=== PATIENT | female | born 1970 | race Caucasian/White ===

== ENCOUNTER 2023-05-14 06:10 | Emergency (ER) | payer MEDICAID, SELFPAY ==
--- NOTE | 2023-05-14 07:15 | PC.NURSE ---
SEE DOWNTIME CHART for initial assessment.
--- NOTE | 2023-05-14 07:20 | PC.NURSE ---
Patient report received from JUAN ANTONIO Velasquez. all questions answered and care of patient assumed.
[2023-05-14 07:33] LABS: Alanine Aminotransferase 18 U/L (6-35); Albumin Level 4.3 g/dL (3.5-5.1); Alkaline Phosphatase 60 U/L (38-126); Anion Gap 11 mmol/L (8-16); Aspartate Amino Transferase 25 U/L (14-36); Bilirubin,Total 0.4 mg/dL (0.2-1.3); Blood Urea Nitrogen 10 mg/dL (7-17); Calcium 8.9 mg/dL (8.4-10.2); Carbon Dioxide 24 mmol/L (22-30); Chloride 104 mmol/L (98-107); Estimated Glomerular Filt Rate > 60; Glucose 116 mg/dL (65-110); Potassium 3.3 mmol/L (3.4-5.0); Sodium 139 mmol/L (137-145)
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
[2023-05-14 07:39] LABS: Amphetamine Screen Urine Positive (Negative); Barbiturate Screen Urine Negative (Negative); Benzodiazepines Screen Urine Negative (Negative); Cannabinoid Screen Urine Negative (Negative); Cocaine Screen Urine Negative (Negative); Methadone Screen Urine Negative (Negative); Opiate Screen Urine Negative (Negative); Phencyclidine Screen Urine Negative (Negative)
[2023-05-14 07:41] LABS: Ethanol < 10 mg/dL (<10); Salicylate < 1.0 mg/dL (2-20)
[2023-05-14 08:19] LABS: Acetaminophen < 10 ug/mL (10-30)
[2023-05-14 08:41] LABS: Basophils Percent Auto 0.6 % (0.2-1.2); Eosinophils Absolute Auto 0.1 K/mm3 (0-0.3); Eosinophils Percent Auto 1.8 % (0-4.4); Hematocrit 38.4 % (37.0-47.0); Hemoglobin 12.2 g/dL (12.0-15.0); Immature Granulocyte Absolute 0.01 K/mm3 (0.00-0.031); Immature Granulocyte Percent A 0.2 % (0-0.5); Lymphocytes Percent Auto 42.2 % (18.3-44.2); Mean Corpuscular HGB Conc 31.8 g/dl (32-36); Mean Corpuscular Hemoglobin 30.1 pg (26-34); Mean Corpuscular Volume 94.8 fl (80-100); Mean Platelet Volume 11.7 fl (7.4-10.4); Monocytes Absolute Auto 0.6 K/mm3 (0.1-0.6); Monocytes Percent Auto 9.7 % (2.6-8.5); Neutrophils Absolute Auto 2.8 K/mm3 (1.3-6.7); Neutrophils Percent Auto 45.5 % (45.5-73.1); Platelet Count Result 236 k/mm3 (150-375); Red Blood Count 4.05 M/mm3 (4.2-5.4); Red Cell Distribution Width 12.3 % (11.5-14.5); White Blood Count 6.2 K/mm3 (4.5-10.0)
[2023-05-14 09:16] LABS: Appearance Urine Cloudy (Clear); Bacteria Urine 4+ /hpf; Bilirubin Urine Negative (Negative); Blood Urine Negative (Negative); Color Urine Yellow (Yellow); Glucose Urine UA Negative (Negative); Ketones Urine Negative (Negative); Leukocyte Esterase Ur 2+ LEU/UL (Negative); Mucus Urine Present /lpf; Need Manual Microscopic Reviewed; Nitrate Urine Positive (Negative); Protein Urine Negative (Negative); RBC Urine 0-2 /hpf (0-2); Specific Grav Ur 1.017 (1.001-1.035); Squamous Epithelial Cell Urine Few /hpf (Few); Urobilinogen Urine 0.2 mg/dL (<2.0); WBC Urine 21-50 /hpf
[2023-05-14 09:17] LABS: Add Urine Microscopic? YES
[2023-05-14] MEDS: POTASSIUM CHLORIDE 20 MEQ PACKET (FOR LIQUID) 40 MEQ PO (10:08)
[2023-05-14] MEDS: CEPHALEXIN 500 MG CAPSULE PO (10:08)
[2023-05-14] MEDS: HALOPERIDOL LACTATE 5 MG/ML VIAL IM (11:23)
[2023-05-14] MEDS: LORazepam INJ (*CRX) 2 MG/ML VIAL IM (11:24)
--- NOTE | 2023-05-14 11:27 | PC.NURSE ---
pt acting out in room. pt requesting to leave. pt made aware that she is involuntary and will have to be placed in facility. pt stating she needs to get [facility] so they can help her. pt unable to be redirected. AILYN Martinez made aware. Gave 2mg of Ativan and 5mg of Haldol per AILYN Martinez.
--- NOTE | 2023-05-14 11:36 | PC.NURSE ---
Patient report given to JUAN ANTONIO Becker. All questions answered and care of patient transferred.
--- NOTE | 2023-05-14 11:50 | PC.NURSE ---
chart faxed to [facility].
--- NOTE | 2023-05-14 12:17 | PC.NURSE ---
chart faxed to [facility].
--- NOTE | 2023-05-14 13:20 | PC.NURSE ---
[facility] requesting Troponin baseline and repeat BMP.
[2023-05-14 13:40] VITALS: BP 112/74; PULSE 88; RESP 17; TEMP 36.6; O2SAT 100
[2023-05-14 13:46] LABS: Anion Gap 8 mmol/L (8-16); Blood Urea Nitrogen 10 mg/dL (7-17); Calcium 8.6 mg/dL (8.4-10.2); Carbon Dioxide 25 mmol/L (22-30); Chloride 106 mmol/L (98-107); Estimated Glomerular Filt Rate > 60; Glucose 110 mg/dL (65-110); Potassium 4.1 mmol/L (3.4-5.0); Sodium 139 mmol/L (137-145)
[2023-05-14 13:46] LABS: Troponin I < 0.012 ng/mL (0.000-0.034)
--- NOTE | 2023-05-14 15:45 | PC.NURSE ---
pt on the phone with [facility] for an assessment.
--- NOTE | 2023-05-14 16:29 | PC.NURSE ---
pt accepted at [facility]. accepting physician is Dr. Turner. room number is [id number]. number for nurse to nurse report is [phone].
== END 2023-05-14 18:14 ==
PROVIDERS: Emergency Provider Preventive Medicine Aerospace Medicine
DX: R45.851 Suicidal ideations (principal); R45.850 Homicidal ideations; F20.0 Paranoid schizophrenia; F15.10 Other stimulant abuse, uncomplicated; N30.00 Acute cystitis without hematuria
CPT/HCPCS: 36415; 80048; 80053; 80307; 81001; 84443; 84484; 85025; 87077; 87086; 87186; 96372; 99285; A9270; J1630; J2060

== ENCOUNTER 2023-05-21 19:35 | Emergency (ER) | payer MEDICAID, SELFPAY ==
[2023-05-21 21:17] VITALS: BP 128/74; PULSE 87; RESP 15; TEMP 36.6; O2SAT 100
== END 2023-05-21 23:00 | disposition left against medical advice (07) ==
DX: Z76.0 Encounter for issue of repeat prescription (principal)
CPT/HCPCS: 99199

== ENCOUNTER 2024-06-02 06:33 | Emergency (ER) | payer MEDICAID, SELFPAY ==
[2024-06-02] VITALS (20 sets, daily range): BP systolic 91–128; BP diastolic 50–88; PULSE 55–85; RESP 12–20; TEMP 36.7–36.8; O2SAT 96–100
--- NOTE | ~2024-06-02 | XR_ITS ---
Portable chest x-ray Comparison: None Clinical History: Pain Findings: Lungs are clear, without focal consolidation or pleural effusion. Cardiomediastinal silho uette is prominent. Cervicothoracic spinal fixation hardware present. Impression: Clear lungs. Reviewed, dictated and finalized at location . Impression: Clear lungs.
--- NOTE | 2024-06-02 06:41 | ECG_ITS ---
Test Date: 2024-06-02 06:42:12 Measurements Intervals [place] Rate: 67 P: 51 NE: 192 QRS: 36 QRSD: 91 T: 247 QT: 497 QTc: 527 Interpretive Statements SINUS RHYTHM MARKED T-WAVE ABNORMALITY CONSISTENT WITH ANTEROLATERAL ISCHEMIA ABNORMAL ECG No previous ECG available for comparison Electronically Signed On 06-02-2024 14:58:29 CDT by Dominic Median M.D.
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
[2024-06-02 06:58] LABS: Basophils Percent Auto 0.7 % (0.2-1.2); Eosinophils Absolute Auto 0.3 K/mm3 (0-0.3); Eosinophils Percent Auto 4.8 % (0-4.4); Hematocrit 38.6 % (37.0-47.0); Immature Granulocyte Absolute 0.01 K/mm3 (0.00-0.031); Immature Granulocyte Percent A 0.2 % (0-0.5); Lymphocytes Absolute Auto 2.84 K/mm3 (0.9-3.2); Lymphocytes Percent Auto 46.6 % (18.3-44.2); Mean Corpuscular HGB Conc 33.7 g/dl (32-36); Mean Corpuscular Hemoglobin 31.3 pg (26-34); Mean Corpuscular Volume 92.8 fl (80-100); Mean Platelet Volume 11.4 fl (7.4-10.4); Monocytes Absolute Auto 0.5 K/mm3 (0.1-0.6); Monocytes Percent Auto 8.2 % (2.6-8.5); Neutrophils Absolute Auto 2.4 K/mm3 (1.3-6.7); Neutrophils Percent Auto 39.5 % (45.5-73.1); Platelet Count Result 252 k/mm3 (150-375); Red Blood Count 4.16 M/mm3 (4.2-5.4); Red Cell Distribution Width 12.3 % (11.5-14.5); White Blood Count 6.1 K/mm3 (4.5-10.0)
--- NOTE | 2024-06-02 07:02 | ED.PSYCH ---
HPI - Psych General Chief Complaint: Psychiatric Symptoms Stated Complaint: pain all over Time Seen by Provider: 06/02/24 07:00 Source: patient and EMS Mode of arrival: EMS Limitations: no limitations History of Present Illness HPI Narrative: 53 years old white female came to the emergency room complaining of pain and aches all over her body all over her joints been going for weeks currently on gabapentin for unknown etiology. Possible fibromyalgia. Patient was in long term for 1 day got out this morning. Came to the ED for evaluation also complaining of would like to rack her car into wall, currently homeless Related Data Allergies Allergy/AdvReac Type Severity Reaction Status Date / Time No Known Allergies Allergy Verified 05/21/23 21:20 Review of Systems Review of Systems: All systems reviewed & are unremarkable except as noted in HPI and below PMFSH Past Medical History Medical History Schizophrenia Social History Social History Smoking status: Former smoker Alcohol intake: never Substance use: never Substance use type: amphetamines Exam Narrative: General appearance: Well-developed, well-nourished, depressed Skin: Normal color Head: Normocephalic, nontraumatic Eyes: Clear conjunctiva ENT: Oropharynx normal, ears normal, nose normal Neck: Supple, nontender Chest and respiratory: Airway patent, no respiratory distress, no accessory muscle use Heart: Regular rate/rhythm Abdomen: Soft, nontender, no organomegaly, quiet bowel sounds Vascular: Normal peripheral pulses, normal capillary refill. Musculoskeletal: Normal range of motion, nontender back Neurologic: Alert and oriented ?3, [employer] is normal as tested, no gross motor deficit Course Course Emergency Course: Patient is medically clear for psych evaluation Vital Signs Vital signs: Vital Signs Temperature 36.7 C 06/02/24 06:32 Pulse Rate 69 06/02/24 06:32 Respiratory Rate 18 06/02/24 06:32 Blood Pressure 118/78 06/02/24 06:32 Pulse Oximetry 99 06/02/24 06:32 Temperature 36.8 C 06/02/24 15:01 Pulse Rate 66 06/02/24 15:01 Respiratory Rate 14 06/02/24 15:01 Blood Pressure 100/64 06/02/24 15:01 Pulse Oximetry 100 06/02/24 15:01 MDM - Psych MDM Narrative Medical decision making narrative: Patient came to the ED thinking about running her car into a wall. Patient currently is homeless. Got out of the long term yesterday. Vital signs on arrival are unremarkable Physical examination showed sleepy, tired looking patient. Differential diagnosis include visual depression with suicidal ideation, noncompliance with medication, homelessness, electrolyte imbalance, dehydration, urinary tract infection. Blood workup today showed no acute abnormalities Urinalysis showed evidence of infection, 1 g Rocephin IV given Chest x-ray showed no acute abnormalities Patient was accepted to be transferred to [facility] Differential Diagnosis Differential diagnosis: Likely other (As above) Medical Records Attestation: I reviewed the patient's medical records. Lab Data Attestation: I reviewed the patient's lab results. 06/02/24 06:53 06/02/24 06:53 Labs: Lab Results 06/02/24 06/02/24 06/02/24 Range/Units 06:53 07:28 10:16 WBC 6.1 (4.5-10.0) K/mm3 RBC 4.16 L (4.2-5.4) M/mm3 Hgb 13.0 (12.0-15.0) g/dL Hct 38.6 (37.0-47.0) % MCV 92.8 (80-100) fl MCH 31.3 (26-34) pg MCHC 33.7 (32-36) g/dl RDW 12.3 (11.5-14.5) % Plt Count 252 (150-375) k/mm3 MPV 11.4 H (7
[2024-06-02 07:25] LABS: Ethanol < 10 mg/dL (<10)
[2024-06-02 07:47] LABS: Alanine Aminotransferase 14 U/L (6-35); Alkaline Phosphatase 70 U/L (38-126); Anion Gap 8 mmol/L (4-12); Aspartate Amino Transferase 23 U/L (14-36); Bilirubin,Total 0.2 mg/dL (0.2-1.3); Blood Urea Nitrogen 8 mg/dL (7-17); Calcium 8.8 mg/dL (8.4-10.2); Carbon Dioxide 28 mmol/L (22-30); Chloride 103 mmol/L (98-107); Estimated CRCL calculation 96 ml/min; Estimated Glomerular Filt Rate > 60; Glucose 86 mg/dL (65-110); Potassium 3.4 mmol/L (3.4-5.0); Sodium 139 mmol/L (137-145)
--- NOTE | 2024-06-02 08:53 | PC.NURSE ---
Pt refusing to provide urine sample at this time. Pt was offered straight catheter, pt declined. EDP Dr. Rosemary daly, gave verbal order for 2L NS IV.
[2024-06-02] MEDS: SODIUM CHLORIDE 0.9% IV 1,000 ML 999 ML IV CONT ×2 (08:59)
[2024-06-02 09:40] LABS: SARS-CoV-2 RNA PCR Negative (Negative)
[2024-06-02 10:18] LABS: BEDSIDEPREGUCG Negative
[2024-06-02 10:33] LABS: Add Urine Microscopic? YES; Appearance Urine Cloudy (Clear); Bacteria Urine 4+ /hpf; Bilirubin Urine Negative (Negative); Blood Urine Negative (Negative); Color Urine Yellow (Yellow); Glucose Urine UA Negative (Negative); Ketones Urine Trace mg/dL (Negative); Leukocyte Esterase Ur Negative LEU/UL (Negative); Need Manual Microscopic Reviewed; Nitrate Urine Positive (Negative); Protein Urine Negative (Negative); RBC Urine 0-2 /hpf (0-2); Specific Grav Ur 1.011 (1.001-1.035); Squamous Epithelial Cell Urine Few /hpf (Few); Urobilinogen Urine 0.2 mg/dL (<2.0); WBC Urine 0-5 /hpf (0-3)
[2024-06-02 10:43] LABS: Amphetamine Screen Urine Positive (Negative); Barbiturate Screen Urine Negative (Negative); Benzodiazepines Screen Urine Negative (Negative); Cannabinoid Screen Urine Negative (Negative); Cocaine Screen Urine Negative (Negative); Methadone Screen Urine Negative (Negative); Opiate Screen Urine Negative (Negative); Phencyclidine Screen Urine Negative (Negative)
--- NOTE | 2024-06-02 18:23 | PC.NURSE ---
Pt refusing [facility] admit after report was called. Discussed w/ charge manager who states pt will need a re eval from crisis due to possibly being involuntary. Pt also requesting crisis come for a re evaluation. This RN called Yeny w/ [facility] who is requesting last eval time. Will possibly have to come at a later time. Will call back.
--- NOTE | 2024-06-02 18:28 | PC.NURSE ---
Pt placed in to green scrubs due to SI precautions by this RN, belongings removed from room and placed in cabinet.
--- NOTE | 2024-06-02 18:44 | PC.NURSE ---
This RN called Lexii at [facility] to notify of pts unwillingness to be inpatient at [facility] (pt was previously a vol. admit). [facility] notified and awaiting call back to verify if needs invol. paper work or re eval as pt requested.
--- NOTE | 2024-06-03 07:41 | PC.NURSE ---
Assumed care of pt. Pt asleep with regular resp. Sitter at bedside
[2024-06-03 11:00] VITALS: BP 101/55; PULSE 56; RESP 16; TEMP 36.6; O2SAT 100
--- NOTE | 2024-06-03 11:44 | PC.NURSE ---
Pt cooperative with staff, sitter at bedside. Pt voices suicidal ideation, denies plan, feels unsafe to go home. Pt informed of acceptance to [facility] & is agreeable
--- NOTE | 2024-06-03 12:30 | PC.NURSE ---
[facility] called for report. Per Fan with [facility] there is no nurse available for report. She will have a nurse call me back
[2024-06-03 12:53] VITALS: BP 130/78; PULSE 78; RESP 16; TEMP 36.6; O2SAT 99
== END 2024-06-03 12:55 ==
PROVIDERS: Emergency Medicine; Preventive Medicine Aerospace Medicine; Emergency Provider Emergency Medicine
DX: F32.A Depression, unspecified (principal); R45.851 Suicidal ideations; Z87.891 Personal history of nicotine dependence
CPT/HCPCS: 36415; 71045; 80053; 80307; 81001; 81025; 84443; 85025; 87635; 93005; 96361; 96365; 99285; J0696; J7030